=== PATIENT | female | born 1945 | race African-American/Black ===

== ENCOUNTER → 2017-02-24 | Outpatient (CLI) | payer MEDICARE ==
[~2017-02-24] MED LIST: ASPI325T4 PO; BORT3.5V IJ; HYDR-2678 PO; LENA10CA PO; LISI-338 PO; METF100010 PO; VALA500T5 PO; ZOLE4VIA IV
--- NOTE | 2017-02-24 14:51 | RAD ---
CT of the head without contrast, 02/24/2017: History: Right-sided pain, myeloma The ventricles are within normal limits in size. There is no shift of the midline structures. There is no evidence of acute intracranial hemorrhage or mass effect. There is a 1 cm lytic lesion in the left temporal bone. A smaller lytic lesion is seen in the right parietal parasagittal region. There is a lytic lesion involving the right occipital condyle, likely the source of the patient's pain. There are associated areas of cortical discontinuity suggesting associated fracture. IMPRESSION: 1. No acute intracranial abnormality is detected. 2. Lytic bony lesions compatible with multiple myeloma with a pathologic fracture of the right occipital condyle. CT of the cervical spine without contrast, 02/24/2017: There are tiny scattered lucencies in the vertebral bodies. No large lytic lesion or additional pathologic fracture is seen. There are moderate anterior and posterior spurs at C5-6 and C6-7. There are mild scattered posterior disc bulges, most prominent at C6-7 just left of midline. There are moderate scattered degenerative changes involving facet joints in the cervical spine. There is more extensive degenerative change involving the left facet joint at C7-T1. There is mild associated central spinal stenosis at C5-6 and C6-7. IMPRESSION: 1. Small scattered lucencies in the cervical spine again compatible with multiple myeloma. 2. Moderate multilevel degenerative change. 3. No additional pathologic fracture is evident. PQRS Compliance Statement: One or more of the following individualized dose reduction techniques were utilized for this examination: 1. Automated exposure control 2. Adjustment of the mA and/or kV according to patient size 3. Use of iterative reconstruction technique
== END | disposition home or self-care (01) ==
LOC: CT 11:02
PROVIDERS: ATTEND Radiology Radiation Oncology
DX: M54.5 Low back pain (principal); Z85.79 Personal history of other malignant neoplasms of lymphoid, hematopoietic and related tissues
CPT/HCPCS: 70450; 72125

== ENCOUNTER → 2017-07-16 | Outpatient (CLI) | payer MEDICARE ==
[~2017-07-16] MED LIST changes: -ASPI325T4 PO; +ASPI325T8 PO
--- NOTE | 2017-07-16 17:26 | RAD ---
Metastatic skeletal survey, 07/16/2017: History: Multiple myeloma Multiple views of the bony skeleton were obtained and compared to a study from 12/25/2016. The following findings are delineated: 1. A lateral view of the skull demonstrates several small lucencies. These have progressed. There is now a 3 cm lucency projected over the anterior temporal parietal region which has increased in size since the previous study. 2. AP views of both humeri and forearms again demonstrate a lytic lesion in the proximal left radial shaft. There is an associated pathologic fracture. There has been some attempted healing with marginal sclerosis and callus formation. No new humeral or forearm lesion is identified. 3. An PA view of the chest demonstrates old healed left rib fractures. No pulmonary infiltrate is seen. 4. AP and lateral views of the cervical, thoracic and lumbar spine demonstrates moderate scattered degenerative changes. There is slight loss of height anteriorly of the T11 vertebral body which was not evident on the previous study. There is a mild unchanged spondylolisthesis at L4-5 due to facet joint arthropathy. 5. An AP view of the pelvis reveals no definite bone destruction. 6. AP views of both femurs and lower legs demonstrate unchanged faint lucencies projected over both mid femoral shafts. Internal fixation devices related to an old left ankle fracture are again noted. IMPRESSION: 1. Worsening calvarial lytic lesions. 2. Partial healing of the left radial pathologic fracture. 3. New minimal T11 vertebral compression deformity. 4. Faint femoral shaft lucencies appear to be stable. 5. Moderate multilevel degenerative change in the spine with unchanged grade 1 spondylolisthesis at L4-5.
== END | disposition home or self-care (01) ==
LOC: RAD 16:03
PROVIDERS: ATTEND Internal Medicine Hematology & Oncology
DX: C90.00 Multiple myeloma not having achieved remission (principal); M84.43 Pathological fracture, ulna and radius; M43.16 Spondylolisthesis, lumbar region
CPT/HCPCS: 77075

== ENCOUNTER → 2020-07-11 | Outpatient (CLI) | payer MEDICARE ==
[~2020-07-11] MED LIST changes: +ACYC200C PO; +GADOTERATE 5 MMOL/10ML VIAL. IVP ONE
--- NOTE | 2020-07-11 14:37 | KCIC ---
Examination: MRI of the left knee without and with IV contrast HISTORY: History of left knee pain, multiple myeloma COMPARISON: None available Technique: Multiplanar multisequence MR imaging of the left knee was performed without and with IV contrast. IV contrast used was 18 cc of Dotarem FINDINGS: The anterior cruciate ligament, posterior cruciate ligament appear intact. The medial collateral ligament is intact. Lateral collateral ligamentous complex including the fibular collateral ligament, biceps femoris tendon, popliteus tendon appear intact. The extensor mechanism is intact. The medial retinaculum, lateral retinaculum are intact. Small knee joint effusion is identified. There is superficial fraying of cartilage identified in the medial, lateral, patellofemoral compartments. In the lateral portion of the patella there is a 2.2 cm T2 hyperintensity with low T1 signal could be multiple foci of subchondral degenerative cysts secondary to degeneration and less likely malignancy/metastasis without overlying cortical disruption. There is mild suppression fraying of cartilage identified in the lateral patella Small knee joint effusion is identified. Small popliteal cyst. IMPRESSION: 1. There is 2.2 cm T2 hyperintensity with low T1 signal could be multiple foci of subchondral degenerative cysts secondary to degeneration and less likely malignancy/metastasis without overlying cortical disruption. 2. Small popliteal cyst.Small knee joint small popliteal cyst. Electronically signed by: Vick Orantes MD (07/11/2020 2:35 PM) [id number]
== END | disposition home or self-care (01) ==
LOC: KCIC MRI 12:36
PROVIDERS: ATTEND Internal Medicine Hematology & Oncology
DX: C90.00 Multiple myeloma not having achieved remission (principal); M25.562 Pain in left knee; M25.462 Effusion, left knee; M71.22 Synovial cyst of popliteal space [Baker], left knee
CPT/HCPCS: 73723; A9575